=== PATIENT | male | born 1990 | race Caucasian/White ===

== ENCOUNTER 2016-12-15 17:59 | Emergency (ER) | payer BC ==
[2016-12-15 18:02] VITALS: BP_SYST 115; BP_SYST 5; BP_DIAS 56; PULSE 59; RESP 16; TEMP 97.8; O2SAT 99
== END 2016-12-15 20:20 | disposition left against medical advice (07) ==
LOC: NED 17:59
DX: R68.89 Other general symptoms and signs (principal)
CPT/HCPCS: 99281

== ENCOUNTER 2017-01-31 09:01 | Emergency (ER) | payer BC ==
[~2017-01-31] VITALS: Ht 167.6 cm; Wt 60.0 kg
[2017-01-31 09:02] VITALS: BP 122/81; PULSE 66; RESP 20; TEMP 98; O2SAT 99
[2017-01-31 09:54] LABS: AUTOMATED NEUTROPHIL # 5.6 TH/MM3 (1.8-7.7); BASOPHIL % 0.4 % (0.0-2.0); EOSINOPHIL % 0.4 % (0.0-4.0); HEMATOCRIT 45.2 % (39.0-51.0); HEMO FLAGS DIFF FINAL; LYMPH % 20.2 % (9.0-44.0); LYMPHOCYTE # 1.6 TH/MM3 (1.0-4.8); MEAN CELL VOLUME 83.9 FL (80.0-100.0); MEAN CORPUSCULAR HEMOGLOBIN 29.3 PG (27.0-34.0); MONO % 8.7 % (0.0-8.0); NEUT % 70.3 % (16.0-70.0); PLATELET COUNT 224 TH/MM3 (150-450); RED BLOOD COUNT 5.38 MIL/MM3 (4.50-5.90); RED CELL DISTRIBUTION WIDTH 13.5 % (11.6-17.2); WHITE BLOOD COUNT 7.9 TH/MM3 (4.0-11.0)
[2017-01-31 09:58] LABS: APTT (PATIENT) 27.9 SEC (24.3-30.1); PROTHROMBIN TIME - PATIENT 11.4 SEC (9.8-11.6)
--- NOTE | 2017-01-31 10:02 | PD ---
HPI Chief Complaint: GI Complaint Time Seen by Provider: 10:00 Travel History International Travel<30 days: No Contact w/Intl Traveler<30days: No Traveled to known affect area: No History of Present Illness HPI Patient 26-year-old male with a history of IV drug abuse states last used heroin approximately 4 days ago presents emergency Department nausea and vomiting for the past 5 days. Patient states she's been an opiate withdrawals before this does not feel like opiate withdrawals. Patient states initially started this stomach contents and now is having some mild blood streaking. He was seen in an outside hospital was given prescription for Phenergan and PPI and this is not working. States she's having a generalized abdominal cramping. Denies any blood in the stool denies any dark stools. Denies any fevers. Has not followed up with a primary care physician. [facility] Social History Alcohol Use: Yes Tobacco Use: Yes Substance Use: Yes (heroin, crack) Allergies-Medications (Allergen,Severity, Reaction): Coded Allergies: Penicillin (Verified Allergy, Unknown, 01/31/17) Reported Meds & Prescriptions Reported Meds & Active Scripts Active Bentyl (Dicyclomine HCl) 20 Mg Tab 20 Mg PO TID PRN Review of Systems Except as stated in HPI: all other systems reviewed are Neg Physical Exam Narrative GENERAL: Well-developed well-nourished no apparent distress SKIN: Focused skin assessment warm/dry. HEAD: Atraumatic. Normocephalic. EYES: Pupils equal and round. No scleral icterus. No injection or drainage. ENT: No nasal bleeding or discharge. Mucous membranes pink and moist. NECK: Trachea midline. No JVD. CARDIOVASCULAR: Regular rate and rhythm. No murmur appreciated. RESPIRATORY: No accessory muscle use. Clear to auscultation. Breath sounds equal bilaterally. GASTROINTESTINAL: Abdomen soft, non-tender, nondistended. Hepatic and splenic margins not palpable. MUSCULOSKELETAL: No obvious deformities. No clubbing. No cyanosis. No edema. NEUROLOGICAL: Awake and alert. No obvious cranial nerve deficits. Motor grossly within normal limits. Normal speech. PSYCHIATRIC: Appropriate mood and affect; insight and judgment normal. Data Data Last Documented VS Vital Signs Date Time Temp Pulse Resp B/P Pulse Ox O2 Delivery O2 Flow Rate FiO2 01/31/17 11:53 17 01/31/17 09:02 98.0 66 122/81 99 Room Air Orders Complete Blood Count With Diff (01/31/17 09:05) Comprehensive Metabolic Panel (01/31/17 09:05) Prothrombin Time / Inr (Pt) (01/31/17 09:05) Act Partial Throm Time (Ptt) (01/31/17 09:05) Type And Screen (01/31/17 09:05) Ondansetron Inj (Zofran Inj) (01/31/17 10:30) Sodium Chlor 0.9% 1000 Ml Inj (Ns 1000 M (01/31/17 10:30) Ketorolac Inj (Toradol Inj) (01/31/17 10:30) Lipase (01/31/17 11:13) Morphine Inj (Morphine Inj) (01/31/17 11:30) Dicyclomine (Bentyl) (01/31/17 11:45) Labs Laboratory Tests Test 01/31/17 09:16 White Blood Count 7.9 TH/MM3 Red Blood Count 5.38 MIL/MM3 Hemoglobin 15.8 GM/DL Hematocrit 45.2 % Mean Corpuscular Volume 83.9 FL Mean Corpuscular Hemoglobin 29.3 PG Mean Corpuscular Hemoglobin 35.0 % Concent Red Cell Distribution Width 13.5 % Platelet Count 224 TH/MM3 Mean Platelet Volume 8.4 FL Neutrophils (%) (Auto) 70.3 % Lymphocytes (%) (Auto) 20.2 % Monocytes (%) (Auto) 8.7 % Eosinophils (%) (Auto) 0.4 % Basophils (%) (Auto) 0.4 % Neutrophils # (Auto) 5.6 TH/MM3 Lymphocytes # (Auto) 1.6 TH/MM3 Monocytes # (Auto) 0.7 TH/MM3 Eosinophils # (Auto) 0.0 TH/MM3 Basophils # (Auto) 0.0 TH/MM3 CBC Comment DIFF FINAL Differential Comment Prothrombin Time 11.4 SEC Prothromb Time International 1.0 RATIO Ratio Activated Partial 27.9 SEC Thromboplast Time Sodium Level 138 MEQ/L Potassium Level 3.8 MEQ/L Chloride Level 99 MEQ/L Carbon Dioxide Level 29.8 MEQ/L Anion Gap 9 MEQ/L Blood Urea Nitrogen 15 MG/DL Creatinine 1.12 MG/DL Estimat Glomerular Filtration 80 ML/MIN Rate Random Glucose 109 MG/DL Calcium Level 10.0 MG/DL Total Bilirubin 0.6 MG/DL Aspartate Amino Transf 7 U/L (AST/SGOT) Alanine Aminotransferase 27 U/L (ALT/SGPT) Alkaline Phosphatase 74 U/L Total Protein 8.5 GM/DL Albumin 4.8 GM/DL Lipase 109 U/L Blood Type A POSITIVE Antibody Screen NEGATIVE Blood Bank Comment MDM Medical Decision Making Medical Screen Exam Complete: Yes Emergency Medical Condition: Yes Differential Diagnosis Gastritis, gastroenteritis, pancreatitis, cholecystitis unlikely, Melva-Royal tear, esophageal varices unlikely. Anemia. Narrative Course 26-year-old male presents emergency Department with nausea vomiting and abdominal discomfort. Abdomen is benign on exam. Laboratory workup shows minimal elevation of white blood cell count. Patient reports that he had a CAT scan yesterday at an outside facility which was normal. After fluids and pain medicine he is feeling better and would like to go home. Discussed symptomatically management. Will add omeprazole as well as Phenergan. Discussed need follow-up the primary care physician and return to ED criteria. Diagnosis Primary Impression: Epigastric abdominal pain Referrals: Magalie Solis MD Med/Other Pt SpecificInfo: Prescription(s) given Scripts Dicyclomine (Bentyl)20 Mg Tab20 Mg PO TID PRN (Bowel Management) #20 TAB Ref 0 Prov:Erasmo Mcgregor MD 01/31/17 Disposition: 01 DISCHARGE HOME Condition: Stable Erasmo Mcgregor MD Jan 31, 2017 10:02
[2017-01-31 10:10] LABS: ANION GAP 9 MEQ/L (5-15); AST (GOT) 7 U/L (15-37); BICARBONATE 29.8 MEQ/L (21.0-32.0); BLOOD UREA NITROGEN 15 MG/DL (7-18); CHLORIDE 99 MEQ/L (98-107); GLOMERULAR FILTRATION RATE 80 ML/MIN (>89); POTASSIUM 3.8 MEQ/L (3.5-5.1); SODIUM (NA) 138 MEQ/L (136-145)
[2017-01-31 10:13] LABS: ALKALINE PHOSPHATASE 74 U/L (45-117); ALT (GPT) 27 U/L (12-78); TOTAL BILIRUBIN ADULT 0.6 MG/DL (0.2-1.0)
[2017-01-31] MEDS ORDERED: KETOROLAC TROMETHAMINE 30 MG/ML (IVP) VIAL IV PUSH ONE (10:30)
[2017-01-31] MEDS ORDERED: ONDANSETRON HCL 4 MG/2 ML VIAL IV PUSH ONE (10:30)
[2017-01-31] MEDS ORDERED: SODIUM CHLOR 0.9% 1000 ML INJ 1,000 ML IV ONE (10:30)
[2017-01-31] MEDS ORDERED: MORPHINE SULFATE 8 MG/ML INJ IV PUSH ONE (11:30)
[2017-01-31] MEDS ORDERED: BENT20TA PO (11:41)
[2017-01-31] MEDS ORDERED: DICYCLOMINE HCL 10 MG CAP PO ONE (11:45)
[2017-01-31 11:53] VITALS: RESP 17
== END 2017-01-31 12:05 | disposition home or self-care (01) ==
LOC: NEPD 09:01
DX: R10.13 Epigastric pain (principal); Z72.0 Tobacco use; R11.2 Nausea with vomiting, unspecified
CPT/HCPCS: 80053; 83690; 85025; 85610; 85730; 86850; 86900; 86901; 96361; 96374; 96375; 99284; J1885; J2405; J7030